=== PATIENT | male | born 1955 | race Caucasian/White ===

== ENCOUNTER 2023-07-07 08:28 | Outpatient (OUT) | payer MEDICARE, OTHER, SELFPAY ==
[2023-07-07 10:05] LABS: Estimated Average Glucose 100 mg/dL; Glycohemoglobin A1C 5.1 % (4.5-6.2)
[2023-07-07 10:12] LABS: Free T4 0.92 ng/dL (0.76-1.46)
[2023-07-07 10:15] LABS: Alanine Aminotransferase 29 U/L (16-63); Albumin Level 3.6 g/dL (3.4-5.0); Alkaline Phosphatase 59 U/L (46-116); Anion Gap 12.9; Aspartate Amino Transferase 24 U/L (15-37); BUN Creatinine Ratio 13.8; Bilirubin Total 0.7 mg/dL (0.2-1.0); Calcium 9.3 mg/dL (8.5-10.1); Carbon Dioxide 24.3 mmol/L (21.0-32.0); Chloride 105 mmol/L (98-107); Chol HDL Ratio 3.6; Cholesterol 167 mg/dL (<=200); Estimated GFR (African America >60 (>=60); Estimated GFR (Non-African Ame >60 (>=60); Globulin 3.5 g/dL; Glucose 100 mg/dL (74-106); HDL Cholesterol 46 mg/dL (40-60); Potassium 4.2 mmol/L (3.5-5.1); Sodium 138 mmol/L (136-145); Thyroid Stimulating Hormone 2.147 uIU/mL (0.358-3.740); Total Protein 7.1 g/dL (6.4-8.2); Triglycerides 172 mg/dL (<=150); Uric Acid 5.9 mg/dL (3.5-7.2); VLDL CHOLESTEROL 34.4 mg/dL
[2023-07-07 10:24] LABS: Prostate Specific Antigen Scrn 3.46 ng/mL (<=4.00)
[2023-07-07 11:32] LABS: Basophils Percent Auto 0.5 % (0.2-2.0); Eosinophils Absolute Auto 0.3 10^3/uL (0.0-0.7); Eosinophils Percent Auto 4.7 % (0.9-7.0); Hematocrit 46.5 % (42.0-54.0); Hemoglobin 15.4 g/dL (14.0-18.0); Immature Granulocytes Abs Auto 0.02 10^3/uL (0.00-0.03); Immature Granulocytes Pct Auto 0.3 % (0.0-0.5); Lymphocytes Absolute Auto 2.3 10^3/uL (1.2-3.8); Lymphocytes Percent Auto 39.5 % (20.5-60.0); Mean Corpuscular HGB Conc 33.1 g/dL (29.9-35.2); Mean Corpuscular Hemoglobin 31.2 pg (25.9-34.0); Mean Corpuscular Volume 94.3 fL (80.0-94.0); Mean Platelet Volume 10.1 fL (9.5-13.5); Monocytes Absolute Auto 0.5 10^3/uL (0.3-0.8); Neutrophils Absolute Auto 2.7 10^3/uL (1.4-6.5); Platelet Count 188 10^3/uL (150-450); Red Blood Count 4.93 10^6/uL (4.70-6.10); Red Cell Distribution Width 12.4 % (11.0-15.0); White Blood Count 5.9 10^3/uL (4.0-11.0)
== END 2023-07-07 08:29 | disposition home or self-care (01) ==
LOC: LAB 08:31
PROVIDERS: PCP Family Medicine; Visit Provider Family Medicine
DX: E78.5 Hyperlipidemia, unspecified (principal); R73.09 Other abnormal glucose; G25.0 Essential tremor; E78.1 Pure hyperglyceridemia; E79.0 Hyperuricemia without signs of inflammatory arthritis and tophaceous disease; E78.00 Pure hypercholesterolemia, unspecified; Z12.5 Encounter for screening for malignant neoplasm of prostate
CPT/HCPCS: 36415; 80053; 80061; 83036; 84436; 84439; 84443; 84550; 85025; G0103

== ENCOUNTER 2025-05-26 10:02 | Outpatient (OUT) | payer MEDICARE, OTHER, SELFPAY ==
--- OUTSIDE RECORDS SUMMARY | 2025-05-26 10:06 | XMS_ITS | Clinical Summary ---
Author Organization [facility] Address [address] [place] [address] Care Team Providers Care Sequins Stringer Name Role Phone Nils Stallings MD Primary Care Provider [phone] Allergies Active Allergy Reactions Criticality Noted Date Comments Povidone Iodine Unknown 12/19/2023 Other Reaction(s): Rash Sulfa Antibiotics 01/07/2025 Other Reaction(s): Unknown Medications MULTIPLE VITAMIN IV Active aspirin 81 MG EC tablet 1 (one) time each day at the same time Active lansoprazole (Prevacid) [address] capsule Active metoprolol tartrate (Lopressor) 25 MG tablet every 12 (twelve) hours Active simvastatin (Zocor) 40 MG tablet Take 40 mg by mouth at bedtime Active Active Problems No known active problems Social History Tobacco Use Types Packs/Day Years Used Date Smoking Tobacco: Never Passive Smoke Exposure: Never Smokeless Tobacco: Never Tobacco Cessation:Counseling Given: Not Answered Sex and Gender Information Value Date Recorded Sex Assigned at Male 12/12/2023 4:48 PM EDT Legal Sex Male 7:59 PM EDT Gender Identity Male 12/12/2023 4:48 PM EDT Sexual Orientation Not on file Plan of Treatment Upcoming Encounters Date Type Department Care Team (Late Contact Info) Description 01/06/2026 10:35 AM EDT Office Visit [facility] [address] [place] [id number] Katie Pablo MD [address] [place] [address] Health Maintenance Due Date Last Done Comments CT Colonography 1957 Colonoscopy 1957 Colorectal Cancer Screening 1957 FIT-DNA 1957 FIT 1957 FOBT 1957 Sigmoidoscopy 1957 Pneumococcal Vaccine: 65+ Ye ars (1 of 1 - PCV) 2007 Influenza Vaccine (#1) 2025 , 07/01/2022, 07/09/2021, Additional history exists Insurance [facility]ICARE [facility] [place] [id number] Care Teams Sequins Stringer Relationship Specialty Start Date End Date Nils Stallings MD PCP - General 12/12/23
--- OUTSIDE RECORDS SUMMARY | 2025-05-26 10:08 | XMS_ITS | CCD ---
Author Organization [facility] Care Team Providers Care Shoe Ironer Name Role Phone Shweta Stallings Primary Care Physician NILL, DR GARCIA Admitting Unavailable NILL, DR GARCIA Attending Unavailable HOY, DR ROCK Primary Care Unavailable NILL, DR GARCIA Consulting Unavailable HOY, DR ROCK Admitting Unavailable HOY, DR ROCK Attending Unavailable HOY, DR ROCK Primary Care Unavailable HOY, DR ROCK Consulting Unavailable HOY, DR ROCK Admitting Unavailable HOY, DR ROCK Attending Unavailable HOY, DR ROCK Primary Care Unavailable HOY, DR ROCK Consulting Unavailable NILL, DR GARCIA Admitting Unavailable NILL, DR GARCIA Attending Unavailable HOY, DR ROCK Primary Care Unavailable NILL, DR GARCIA Consulting Unavailable ARTURO, CR Consulting Unavailable GEMBUS, DERRICK Consulting Unavailable PATRICKL, Radha Pearson Attending Unavailable Jonatany PROVIDERShweta Referring Unavailabl e NILL, Radha Pearson Attending Unavailable NILL, Radha Pearson Attending Unavailable Shweta Stallings MD Primary Care Provider [phone] KATIE AVALOS Attending Unavailable Allergies Allergy Classification Reported Allergen(s) Allergy Type Date of Onset Reaction(s) Facility (3 sources) Povidone-Iodine; Translations: [povidone iodine topical] Drug Allergy Rash [facility] (3 sources) Sulfonamides (Antibiotic); Translations: [sulfa drugs] Drug allergy Unknown (qualifier value) [facility] [place] (1 source) Povidone-Iodine Drug Allergy [facility] (1 source) Sulfonamides (Antibiotic) Drug allergy (disorder) [facility] (3 sources) Povidone-Iodine Drug Allergy 4 Unknown [facility] (2 sources) Sulfonamides (Antibiotic) Drug Allergy 5 [facility] Medications Current Medications Medication Drug Class(es) Dates Sig (Normalized) Sig (Original) aspirin 81 mg chewable tablet (5 sources) Platelet Aggregation Inhibitor, Nonsteroidal Anti-inflammatory Drug Start: 07-20-2022 aspirin 81 mg Chew Tab 81 mg = 1 tab(s), Chewed, Daily, Refills(s) 0 Start Date: 07/20/22 Status: Ordered aspirin 81 MG EC tablet 1 (one) time each day at the same time Active lansoprazole 30 mg delayed release oral capsule (5 sources) Proton Pump Inhibitor Start: 07-15-2020 take 1 capsule by mouth once daily Prevacid 30 mg Cap-DR 30 mg = 1 cap(s), Oral, Daily, Refills(s) 0 Start Date: 07/15/20 Status: Ordered metoprolol tartrate 50 mg oral tablet (5 sources) beta-Adrenergic Trinity Start: 07-20-2022 take 1 tablet by mouth twice daily Metoprolol tartrate 50 mg Tab 50 mg = 1 tab(s), Oral, BID, Refills(s) 0 Start Date: 07/20/22 Status: Ordered metoprolol tartr ate (Lopressor) 25 MG tablet every 12 (twelve) hours Active MULTIPLE VITAMIN IV (3 sources) MULTIPLE VITAMIN IV Active MULTIPLE VITAMIN IV Multiple Vitamin Active simvastatin 40 mg oral tablet (5 sources) HMG-CoA Reductase Inhibitor Start: 07-15-2020 take 1 tablet by mouth once daily at bedtime simvastatin 40 mg Tab 40 mg = 1 tab(s), Oral, Once a day (at bedtime), Refills(s) 0 Start Date: 07/15/20 Status: Ordered Problems Problem Classification Problem Date Documented Da te Episodic/Chronic Cardiac dysrhythmias (2 sources) Paroxysmal supraventricular tachycardia 07-20-2022 Chronic Conduction disorders (2 sources) Left bundle branch block 07-20-2022 Chronic Diabetes mellitus without complication (1 source) Other abnormal glucose; Translations: [OTHER ABNORMAL GLUCOSE] Onset: 2 Episodic Disorders of lipid metabolism (4 sources) Pure hypercholesterolemia; Translations: [Hyperlipidemia, unspecified] Onset: 2 07-15-2020 Chronic Diverticulosis and diverticulitis (1 source) Diverticulosis of large intestine without perforation or abscess without bleeding; Translations: [DVRTCLOS LG INT NO PERF/ABSC W/O BL] Onset: 2 Chronic Esophageal disorders (3 sources) Gastroesophageal reflux disease; Translations: [Gastro-esophageal reflux disease without esophagitis] Onset: 2 07-15-2020 Chronic Gastrointestinal hemorrhage (7 sources) Rectal hemorrhage; Translations: [Hemorrhage of anus and rectum] Onset: 2 07-15-2020 Episodic Heart valve disorders (4 sources) Mitral valve disorder; 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, non-rheumatic] 07-20-2022 Chronic Hemorrhoids (2 sources) Hemorrhoids 07-20-2022 Episodic Joint disorders and dislocations; trauma-related (2 sources) Derangement of knee 07-15-2020 Chronic Other and unspecified benign neoplasm (2 sources) Melanocytic nevus of trunk; Translations: [Melanocytic nevi of trunk] 01-07-2025 Episodic Other and unspecified benign neoplasm (2 sources) Skin lesion; Translations: [Hemangioma of skin and subcutaneous tissue] 01-07-2025 Episodic Other and unspecified benign neoplasm (2 sources) Melanocytic nevus of scalp; Translations: [Melanocytic nevi of scalp and neck] 01-07-2025 Episodic Other hereditary and degenerative nervous system conditions (2 sources) Essential tremor 07-15-2020 Chronic Other hereditary and degenerative nervous system conditions (1 source) Essential tremor; Translations: [ESSENTIAL TREMOR] Onset: 2 Chronic Other nutritional; endocrine; and metabolic disorders (2 sources) Body mass index 30+ - obesity 07-26-2022 Chronic Other nutritional; endocrine; and metabolic disorders (1 source) Obesity, unspecified; Translations: [OBESITY UNSPECIFIED] Onset: 2 Chronic Other nutritional; endocrine; and metabolic disorders (1 source) Body mass index (BMI) 33.0-33.9, adult; Translations: [BODY MASS INDEX BMI 33.0-33.9 ADULT] Onset: 2 Chronic Other nutritional; endocrine; and metabolic disorders (2 sources) Hyperuricemia 07-15-2020 Episodic Other nutritional; endocrine; and metabolic disorders (1 source) Hyperuricemia without signs of inflammatory arthritis and tophaceous disease; Translations: [HU W/O SIGNS IA AND TOPHACEOUS DZ] Onset: 2 Episodic Other screening for suspected conditions (not mental disorders or infectious disease) (6 sources) Encounter for screening for malignant neoplasm of rectum; Translations: [Encounter for screening for malignant neoplasm of prostate] Onset: 2 Episodic Other skin disorders (2 sources) Lentiginosis; Translations: [Other melanin hyperpigmentation] 01-07-2025 Episodic Other skin disorders (2 sources) Seborrheic keratosis; Translations: [Other seborrheic keratosis] 01-07-2025 Episodic Peripheral and visceral atherosclerosis (2 sources) Intermittent claudication 07-15-2020 Chronic Unclassified (1 source) CONTACT W/AND (SUSP) EXPOS COVID-19; Translations: [CONTACT W/AND (SUSP) EXPOS COVID-19] Onset: 2 Results Test Name Value Interpretation Reference Range Facility Outside Colonoscopyon 2021 Outside Colonoscopy [id number]: 127 Normal [facility] Reminderson 08-25-2022 Reminders - From: Jaky Dillard LPN To: N - Clinical; Sent: 08/25/2022 11:13:59 EST Show up: 07/25/2032 07:00:00 EST Subject: colonoscopy recall Due Date/Time: 08/24/2032 07:00:00 EST Reminder/Recall Patient is due for screening colonoscopy 08/24/2032. Normal [facility] Lab Reportson 08-22-2022 Lab Reports [id number]: 127 Normal [facility] Covid-19 PCR (CVDTB)on 08-11 SARS-CoV-2 (COVID-19) RNA CIARA+probe Ql (Unsp spec) Not detected Normal NOT DETECTED [facility] Comment on above: Result Comment: When diagnostic testing is negative, the possibility of a false negative should be considered in the context of a patient's recent exposures and the presence of clinical signs and symptoms consistent with SARS-CoV-2. This test is not yet approved or cleared by the [place] FDA. When there are no FDA-approved or cleared tests available, and other criteria are met, FDA can make tests available under an emergency access mechanism called an Emergency Use Authorization (EUA). The EUA for this test is supported by the [place] of Health and Human Service's declaration that circumstances exist to justify the emergency use of in vitro diagnostics for the detection and/or diagnosis of the virus that causes COVID-19. This EUA will remain in effect for the duration of the COVID-19 declaration justifying emergency of IVDs, unless it is terminated or revoked by the FDA (after which the test may no longer be used). Performed By: #### C [facility] #### [facility] [address] [address] [address] Marcial Newby Consent for Procedure/Surger yon 07-27-2022 Consent for Procedure/Surgery [id number]: 127 Normal [facility] Ambulatory Visit Summaryon 1 09-25-2021 Ambulatory Visit Summary PHILLIP GAYTAN Eri :1955 Visit Date:07/26/2022 Ambulatory Visit Instructions Your Care Team Attending Physician - SATHISH BAER, Radha Pearson Primary Care Physician - Shweta Stallings MD This Is Your Medications List aspirin (aspirin 81 mg Chew Tab) lansoprazole (Prevacid 30 mg Cap-DR) metoprolol (Metoprolol tartrate 50 mg Tab) simvastatin (simvastatin 40 mg Tab) Procedures Performed Colonoscopy. Discharge Vitals Heart Rate (Peripheral) 68 Respiratory Rate 16 Blood Pressure 118/88 Height 179 cm Height 70 in Weight 107 kg Weight 235.4 lb BMI 33.39 Medications What How Much When Instructions Unchanged aspirin (aspirin 81 mg Chew Tab) 1 Tablets Chewed Every day Unchanged lansoprazole (Prevacid 30 mg Cap-DR) 1 Capsules By Mouth Every day Unchanged metoprolol (Metoprolol tartrate 50 mg Tab) 1 Tablets By Mouth 2 times a day Unchanged simvastatin (simvastatin 40 mg Tab) 1 Tablets By Mouth Once a day (at bedtime) Allergies Betadine (Rash) sulfa drugs (Unknown) Problems Ongoing - Any problem that you are currently receiving treatment for. Acute internal derangement of knee BMI 33.0-33.9,adult Essential tremor GERD (gastroesophageal reflux disease) Hemorrhoids Hyperuricemia Intermittent claudication Left bundle branch block Mitral valve disorder Paroxysmal supraventricular tachycardia Pure hypercholesterolemia Rectal bleeding Tricuspid valve disorder, non-rheumatic Normal [facility] INSULINon 07-02-2022 Insulin 17.9 uIU/mL Normal 2.6-24.[address] [facility] Comment on above: Performed By: #### I NSULIN #### [facility] [address] [address] [address] Marcial Newby OCC BLD IMMUNO SCREENon 06-12 OCCULT BLOOD Negative Normal NEGATIVE [facility] Comment on above: Performed By: #### O BSCRN #### [facility] [address] [address] [address] Marcial Newby CBC AUTO DIFFon 07-01-2022 BASO # 0.1 103/ul Normal 0.0-0.[address] [facility] Comment on above: Performed By: #### C BC #### [facility] [address] [place] [address] Dr. Marcial Newby Basophils/100 WBC (Bld) 0.9 % Normal 0.2-2.[address] [facility] Comment on above: Performed By: #### C BC #### [facility] [address] [address] [address] Marcial Newby EO # 0.2 103/ul Normal 0.0-0.[address] [facility] Comment on above: Performed By: #### C BC #### [facility] [address] [address] [address] Marcial Newby Eosinophils/100 WBC (Bld) 2.8 % Normal 0.9-7.[address] [facility] Comment on above: Performed By: #### C BC #### [facility] [address] [place] [address] Dr. Marcial Newby Erythrocyte distribution width (RBC) [Ratio] 12.3 % Normal 11.0-15.[address] [facility] Comment on above: Performed By: #### C BC #### [facility] [address] [place] [address] Dr. Marcial Newby Hematocrit (Bld) [Volume fraction] 47.2 % Normal 42.0-54.[address] [facility] Comment on above: Performed By: #### C BC #### [facility] [address] [address] [address] Marcial Newby Hemoglobin (Bld) [Mass/Vol] 15.9 g/dL Normal 14.0-18.[address] [facility] Comment on above: Performed By: #### C BC #### [facility] [address] [address] [address] Marcial Newby IG # 0.01 10e3/ul Normal 0.00-0.[address] [facility] Comment on above: Performed By: #### C BC #### [facility] [address] [place] [address] Dr. Marcial Newby IG % 0.2 % Normal 0.0-0.[address] [facility] Comment on above: Performed By: #### C BC #### [facility] [address] [place] [address] Dr. Marcial Newby LYMPH # 1.8 103/ul Normal 1.2-3.[address] [facility] Comment on above: Performed By: #### C BC #### [facility] [address] [place] [address] Dr. Marcial Newby Lymphocytes/100 WBC (Bld) 34.3 % Normal 20.5-60.[address] [facility] Comment on above: Performed By: #### C BC #### [facility] [address] [place] [address] Dr. Marcial Newby MANUAL DIFF REQ NO Normal [facility] Comment on above: Performed By: #### C BC #### [facility] [address] [place] [address] Dr. Marcial Newby MCH (RBC) [Entitic mass] 31.0 pg Normal 25.9-34.[address] [facility] Comment on above: Performed By: #### C BC #### [facility] [address] [place] [address] Dr. Marcial Newby MCHC (RBC) [Mass/Vol] 33.7 g/dL Normal 29.9-35.[address] [facility] Comment on above: Performed By: #### C BC #### [facility] [address] [address] [address] Marcial Newby MCV (RBC) [Entitic vol] 92.0 fL Normal 80.0-94.[address] [facility] Comment on above: Performed By: #### C BC #### [facility] [address] [address] [address] Marcial Newby MONO # 0.5 103/ul Normal 0.3-0.8 [facility] Comment on above: Performed By: #### C BC #### [facility] [address] [address] [address] Marcial Newby Monocytes/100 WBC (Bld) 9.2 % Normal 1.7-12.[address] [facility] Comment on above: Performed By: #### C BC #### [facility] [address] [place] [address] Dr. Marcial Newby NEUT # 2.8 103/ul Normal 1.4-6.[address] [facility] Comment on above: Performed By: #### C BC #### [facility] [address] [place] [address] Dr. Marcial Newby Neutrophils/100 WBC (Bld) 52.6 % Normal 43.0-75.[address] [facility] Comment on above: Performed By: #### C BC #### [facility] [address] [place] [address] Dr. Marcial Newby Platelet mean volume (Bld) [Entitic vol] 9.6 fL Normal 9.5-13.5 [facility] Comment on above: Performed By: #### C BC #### [facility] [address] [place] [address] Dr. Marcial Newby PLT 208 103/ul Normal 150-450 [facility] Comment on above: Performed By: #### C BC #### [facility] [address] [place] [address] Dr. Marcial Newby RBC 5.13 106/ul Normal 4.70-6.10 [facility] Comment on above: Performed By: #### C BC #### [facility] [address] [address] [address] Marcial Newby WBC 5.3 103/ul Normal 4.0-11.[address] [facility] Comment on above: Performed By: #### C BC #### [facility] [address] [place] [address] Dr. Marcial Newby GLYCOHEMOGLOBIN A1Con 2021 ADA RECOMMENDATION SEE BELOW Normal [facility] Comment on above: Result Comment: ADA RECOMMENDED LIMIT 4.0 - 6.0 ADA THERAPEUTIC TARGET < 7.0 ACTION SUGGESTED > 7.0 Performed By: #### A 1C #### [facility] [address] [place] [address] Dr. Marcial Newby Glucose [Mass/Vol] 108 mg/dL Normal [facility] Comment on above: Performed By: #### A 1C #### [facility] [address] [place] [address] Dr. Marcial Newby HbA1c (Bld) [Mass fraction] 5.4 % Normal 4.5-6.[address] [facility] Comment on above: Performed By: #### A 1C #### [facility] [address] [place] [address] Dr. Marcial Newby LIPID PROFILEon 07-01-2022 CHOL-HDL RATIO NORM SEE BELOW Normal [facility] Comment on above: Result Comment: 3.3 - 4.4 LOW RISK 4.4 - 7.1 AVERAGE RISK 7.1 - 11.0 MODERATE RISK >11.0 HIGH RISK Performed By: #### U SUMMER, CMP, LIPID #### [facility] [address] [place] [address] Dr. Marcial Newby Cholesterol [Mass/Vol] 193 mg/dL Normal <=[address] [facility] Comment on above: Performed By: #### U SUMMER, CMP, LIPID #### [facility] [address] [place] [address] Dr. Marcial Newby Cholesterol in HDL [Mass/Vol] 44 mg/dL Normal 40-[address] [facility] Comment on above: Performed By: #### U SUMMER, CMP, LIPID #### [facility] [address] [place] [address] Dr. Marcial Newby Cholesterol in LDL [Mass/Vol] 112.0 mg/dL Normal [facility] Comment on above: Performed By: #### U SUMMER, CMP, LIPID #### [facility] [address] [address] [address] Marcial Newby Cholesterol.total/Ch olesterol in HDL [Mass ratio] 4.4 {ratio} Normal [facility] Comment on above: Performed By: #### U SUMMER, CMP, LIPID #### [facility] [address] [address] [address] Marcial Newby HDL NORMAL > or = 60 mg/dl - LO W CARDIOVASCULAR RISK <40 mg/dl - HIGH CARDIOVASCULAR RISK Normal [facility] Comment on above: Performed By: #### U SUMMER, CMP, LIPID #### [facility] [address] [address] [address] Marcial Newby LDL CALC NORMAL SEE BELOW Normal [facility] Comment on above: Result Comment: <100 mg/dl OPTIMAL 100 - 129 mg/dl NEAR OR ABOVE OPTIMAL 130 - 159 mg/dl BORDERLINE HIGH 160 - 189 mg/dl HIGH >190 mg/dl VERY HIGH Performed By: #### U SUMMER, CMP, LIPID #### [facility] [address] [address] [address] Marcial Newby Triglyceride [Mass/Vol] 185 mg/dL Critically high <=[address] [facility] Comment on above: Performed By: #### U SUMMER, CMP, LIPID #### [facility] [address] [address] [address] Marcial Newby VLDL CALC 37.0 mg/dL Normal [facility] Comment on above: Performed By: #### U SUMMER, CMP, LIPID #### [facility] [address] [address] [address] Marcial Newby PROF 14(COMP METB)on 022 Albumin [Mass/Vol] 4.0 g/dL Normal 3.4-5.0 [facility] Comment on above: Performed By: #### U SUMMER, CMP, LIPID #### [facility] [address] [address] [address] Marcial Newby Albumin/Globulin [Mass ratio] 1.1 {ratio} Normal [facility] Comment on above: Performed By: #### U SUMMER, CMP, LIPID #### [facility] [address] [address] [address] Marcial Newby ALP [Catalytic activity/Vol] 56 U/L Normal 46-[address] [facility] Comment on above: Performed By: #### U SUMMER, CMP, LIPID #### [facility] [address] [address] [address] Marcial Newby ALT [Catalytic activity/Vol] 31 U/L Normal 16-[address] [facility] Comment on above: Performed By: #### U SUMMER, CMP, LIPID #### [facility] [address] [address] [address] Marcial Newby Anion gap [Moles/Vol] 14.4 mmol/L Normal [facility] Comment on above: Performed By: #### U SUMMER, CMP, LIPID #### [facility] [address] [address] [address] Marcial Newby AST [Catalytic activity/Vol] 24 U/L Normal 15-[address] [facility] Comment on above: Performed By: #### U SUMMER, CMP, LIPID #### [facility] [address] [address] [address] Marcial Newby Bilirubin [Mass/Vol] 0.8 mg/dL Normal 0.2-1.[address] [facility] Comment on above: Performed By: #### U SUMMER, CMP, LIPID #### [facility] [address] [address] [address] Marcial Newby Calcium [Mass/Vol] 9.7 mg/dL Normal 8.5-10.1 [facility] Comment on above: Performed By: #### U SUMMER, CMP, LIPID #### [facility] [address] [address] [address] Marcial Newby Chloride [Moles/Vol] 103 mmol/L Normal 98-[address] [facility] Comment on above: Performed By: #### U SUMMER, CMP, LIPID #### [facility] [address] [address] [address] Marcial Newby CO2 [Moles/Vol] 26.0 mmol/L Normal 21.0-32.0 [facility] Comment on above: Performed By: #### U SUMMER, CMP, LIPID #### [facility] [address] [address] [address] Marcial Nweby Creatinine [Mass/Vol] 1.26 mg/dL Normal 0.70-1.30 [facility] Comment on above: Performed By: #### U SUMMER, CMP, LIPID #### [facility] [address] [address] [address] Marcial Newby EGFR-AF IRANIAN >60 Normal >=60 [facility] Comment on above: Performed By: #### U SUMMER, CMP, LIPID #### [facility] [address] [address] [address] Marcial Newby EGFR-NON AF IRANIAN 57 mL/min/1.73m2 Critically low >=60 [facility] Comment on above: Performed By: #### U SUMMER, CMP, LIPID #### [facility] [address] [address] [address] Marcial Newby Globulin (S) [Mass/Vol] 3.6 g/dL Normal [facility] Comment on above: Performed By: #### U SUMMER, CMP, LIPID #### [facility] [address] [address] [address] Marcial Newby Glucose [Mass/Vol] 98 mg/dL Normal 74-106 [facility] Comment on above: Performed By: #### U SUMMER, CMP, LIPID #### [facility] [address] [address] [address] Marcial Newby Potassium [Moles/Vol] 4.4 mmol/L Normal 3.5-5.1 [facility] Comment on above: Performed By: #### U SUMMER, CMP, LIPID #### [facility] [address] [address] [address] Marcial Newby Protein [Mass/Vol] 7.6 g/dL Normal 6.4-8.2 [facility] Comment on above: Performed By: #### U SUMMER, CMP, LIPID #### [facility] [address] [address] [address] Marcial Newby Sodium [Moles/Vol] 139 mmol/L Normal 136-145 [facility] Comment on above: Performed By: #### U SUMMER, CMP, LIPID #### [facility] [address] [address] [address] Marcial Newby Urea nitrogen [Mass/Vol] 19.0 mg/dL Critically high 7.0-18.[address] [facility] Comment on above: Performed By: #### U SUMMER, CMP, LIPID #### [facility] [address] [address] [address] Marcial Newby Urea nitrogen/Creatinine [Mass ratio] 15.1 mg/mg Normal [facility] Comment on above: Performed By: #### U SUMMER, CMP, LIPID #### [facility] [address] [address] [address] Marcial Newby Physician Referralon 022 Physician Referral [id number]: 127 Normal [facility] URIC ACID SERUMon 07-01-2022 Urate [Mass/Vol] 6.8 mg/dL Normal 3.5-7.2 [facility] Comment on above: Performed By: #### U SUMMER, CMP, LIPID #### [facility] [address] [address] [address] Marcial Newby Vital Signs Date Time Vital Sign Value Performing Clinician Javon fox 07-26-2022 13:22-0500 Blood Pressure Location Radha BESS [facility] 07-26-2022 13:22-0500 Diastolic blood pressure 88 mm[Hg] Radha BESS [facility] 07-26-2022 13:22-0500 Heart rate 68 /min Radha BESS [facility] 07-26-2022 13:22-0500 Respiratory rate 16 /min Radha BESS [facility] 07-26-2022 13:22-0500 Systolic blood pressure 118 mm[Hg] Radha BESS [facility] [place] Encounters Encounter Date Encounter Type Care Provider Facility Start: 01-07-2025 End: 01-07-2025 Jayshree Avalos MD Work Phone: [facility] Start: 01-07-2025 End: 01-07-2025 Bamanthony Avalos MD Work Phone: [facility] Start: 01-07-2025 End: 01-07-2025 ambulatory KATIE AVALOS Not Available Start: 01-07-2025 End: 01-07-2025 Office outpatient visit 15 minutes Katie Avalos MD Work Phone: [facility] Comment on above: Angioma of skin (Dianna jordan Dx); Lentigines; Melanocytic nevus of trunk; Melanocytic nevus of scalp; Seborrheic keratosis Start: 09-08-2022 Encounter for preprocedural laboratory examination DR RADHA BESS [facility] Start: 08-24-2022 End: 08-25-[address] RADHA BESS Facility:[facility] Start: 08-20-2022 End: 08-21-[address] RADHA BESS Facility:[facility] Start: 08-20-2022 End: 08-21-2022 Encounter for preprocedural laboratory examination DR RADHA BESS Facility: Start: 07-26-2022 End: 07-27-2022 [facility]ulatory [facility] Start: 07-26-2022 End: 07-26-2022 Patient encounter procedure Radha BESS [facility] Start: 07-02-2022 End: 07-02-[address] SHWETA STALLINGS Facility:[facility] Start: 07-01-2022 End: 07-02-[address] SHWETA STALLINGS Facility:[facility] Procedures Date Procedure Procedure Detail Performing Clinician Start: 07-01-[address] KURTIS BESS Comment on above: Performed By: #### [place] #### [facility] [address] [address] [address] Mracial Newby Colonoscopy Radha BESS Plan of Treatment Date Care Activity Detail Author Start: 01-06-2026 End: 01-06-2026 Patient encounter procedure 01/06/2026 10:35 AM EDT Office Visit [facility] [address] [place] [address] Katie Avalos MD [address] [place] [address] [facility] Start: 05-12-2025 Influenza vaccination Influenz a Vaccine (Season Ended) [facility] Start: 2007 Pneumococcal Vaccine : 65+ Years (1 of 1 - PCV) Pneumococcal Vaccine: 65+ Years (1 of 1 - PCV) [facility] Start: 1955 Screening for malign ant neoplasm of colon [facility] Immunizations Immunization Date Immunization Notes Care Provider Fa cility 07-01-2024 influenza virus vaccine, unspecified formulation Katie Avalos MD Work Phone: [facility] 07-09-2021 influenza virus vaccine, unspecified formulation Radha BESS [facility] Comment on above: Reason for Medicatio n: Prophylaxis Payers Date Payer Category Payer Medicare MEDICARE [id number] 2022 Private Health Insurance [facility] [id number] 2022 Unknown [id number] 1959 Medicare [id number] 1959 Unknown [id number] 1957 Unknown [id number] .[id number] 1957 Unknown [id number] .[id number] 1957 Unknown [id number] .[id number] 1957 Unknown [id number] .[id number] 1957 Unknown [id number] .[id number] 1957 Unknown [id number] .[id number] 1957 Unknown [id number] .[id number] 1957 Unknown [id number] Social History Date Type Detail Facility Start: 07-26-2022 End: 12-19-2023 Tobacco smoking status Never smoked tobacco (finding) [facility] [place] Tobacco smoking status Never [facility] [place] Start: 12-19-2023 End: 01-07-2025 Sex Assigned At Male [facility] Start: 12-19-2023 Tobacco use and exposure Smokeless tobacco non-user [facility] Start: 12-19-2023 End: 01-07-2025 History of Social function [facility] Start: 1955 Sex assigned at Male [facility] Start: 12-12-2023 Gender identity Identifies as male gender (finding) [facility] NEGATED: Highlighted rowStart: NINF History of tobacco use Passive smoker [facility] Functional Status Date Assessment Result Facility 07-26-2022 Functional Status N/A [facility] History of Present illness Narrative 01-07-2025 Katie Avalos MD - 01/07/2025 10:35 AM EDT Note Date & Type Note Facility 01-07-2025 History of Presen t illness Narrative Skin Check Location: Patient requests a skin examination from the waist up, A full body skin exam was offered, patient declined Dermatologic history: history of atypical mole(s) Last visit: 1 year ago Established patient All pertinent medical history, medications, and allergies were reviewed. General Exam: alert, oriented to person, place, and time, normal affect, well appearing Unaccompanied A complete skin exam was offered, pt declined. Areas not examined despite medical recommendation: From the waist down Scalp, Examined , exam limited by hair Head, Face Examined Neck Examined Chest Examined Back Examined Abdomen Examined Right arm Examined Left arm Examined Hands Examined Digits,nails: Examined Lymphatics: Not examined Skin Exam 1. ANGIOMA OF SKIN (2) Abdomen (Lower Torso, Anterior), Chest (Upper Torso, Anterior) Scattered rios-red papule(s). The patient was informed that angiomas are benign growths on the the skin. No treatment is necessary. 2. LENTIGINES Head - Anterior (Face) Scattered granados macules in sun-exposed areas. The patient was informed that lentigines are benign pigmented lesions that occur on sun-exposed and sun-damaged skin. No treatment is necessary. Recommended regular use of broad spectrum sunscreen SPF 30 or higher 3. MELANOCYTIC NEVUS OF TRUNK Chest (Upper Torso, Anterior) Scattered benign appearing, regular brown to light brown melanocytic papules and macules with similar morphology Counseled regarding these benign growths. Rarely, a nevus can develop into malignant melanoma, so any changing nevi should be promptly re-evaluated. 4. MELANOCYTIC NEVUS OF SCALP Scalp Scattered benign appearing, regular brown to light brown melanocytic papules and macules with similar morphology Counseled regarding these benign growths. Rarely, a nevus can develop into malignant melanoma, so any changing nevi should be promptly re-evaluated. 5. SEBORRHEIC KERATOSIS (2) Generalized, Head - Anterior (Face) Stuck on verrucous, granados-brown papules and plaques. Patient was counseled regarding these benign growths. Removal is normally not necessary, but they may be removed if they are symptomatic or for cosmetic reasons. Next Visit: 1 year documented in this encounter [facility] Clinical Note 08-24-2022 Note Date & Type Note Facility 08-24-2022 Note OPERATIVE NOTE OPERATION DATE: 08/24/2022 PREOPERATIVE DIAGNOSIS: Intermittent rectal bleeding. POSTOPERATIVE DIAGNOSIS: Sigmoid diverticulosis. PROCEDURE: Colonoscopy to cecum. SURGEON: Radha Bess M.D. ANESTHESIA: Monitored anesthesia care. ESTIMATED BLOOD LOSS: Zero. INDICATIONS AND CONSENT: Patient is a 67-year-old male, presents for colorectal screening, has intermittent bright red blood per rectum with wiping. Indications, risks, benefits, alternatives of proceeding with colonoscopy were explained extensively to the patient, including the risks of bleeding, colon perforation or anesthetic complications. All of his questions were answered. Informed consent was obtained. PROCEDURE: Patient brought to the operating room, placed in the left lateral decubitus position. Monitored anesthesia care was provided. Rectal exam was performed which showed no masses or blood. The scope was inserted into the anal canal. Under direct visualization was advanced. With the aid of abdominal compression, it was able to be advanced to the cecum where cecal markings were clearly identified. Upon withdrawal of the scope, mucosal surfaces were carefully examined. There were no mass lesions or polyps. No inflammatory changes or ulcerations. There were moderate, wide mouth sigmoid diverticula without inflammatory changes or scarring. The scope was retroflexed in the anal canal. There were prominent rectal veins. No significant hemorrhoidal disease. Scope was then withdrawn. Patient tolerated procedure well, was sent to recovery room in good condition. CC: Shweta Stallings M.D. [facility] Note 07-31-2022 Note Date & Type Note Facility 07-31-2022 Note Chief Complaint consultation for rectal bleeding HPI Staff 67 year old male presents on consultation from Dr. Stallings for rectal bleeding. Last evaluation for stated complaint 07/2020; planned colonoscopy cancelled per patient. Reports rectal bleeding with blood in toilet water and with wiping after straining for bowel movements. Reports 2-3 episodes per year. Denies rectal pain. No abdominal pain, nausea or vomiting. No unexplained weight loss. Last colonoscopy completed greater than 20 years ago. No known family history of colon cancer. History of Present Illness 67 yo male with h/o hypercholesterolemia, GERD, referred for rectal bleeding; seen 2 years ago and set up for colonoscopy, but cancelled due to COVID concerns; last colonoscopy > 20 years ago; no previous abdominal operations; patient reports intermittent rectal bleeding in toilet and with wiping; no hematochezia or melena, no abdominal complaints; no previous abdominal operations; on baby asa daily, no NSAIDs, no SBE prophylaxis; no fmhx of GI malignancy or IBD; no tobacco use. Review of Systems PHQ Score Initial Depression Screen Score: 0 ROS - Provider Constitutional: no fever, no sweats, no weight loss. Eyes: no glasses, no blurred vision, no visual loss. ENMT: no dentures, no hoarseness, no swallowing difficulties, no hearing loss, no ear infection(s), no nose bleeds. Cardiovascular: normal blood pressure, no chest pain, regular heartbeat, no heart murmur. Respiratory: no shortness of breath, no cough, no asthma, no wheezing. Gastrointestinal: no nausea, no vomiting, no diarrhea, no constipation, no blood in stool, no change in bowel habits, no abdominal pain, no hepatitis. Genitourinary: no kidney stones, no urine infection, no dysuria. Musculoskeletal: no pain, no weakness. Skin: no changing moles, no rash, no skin lumps. Neurologic: no seizures, no epilepsy, no headache. Psychiatric: no emotional or psychiatric problem. Heme/Lymph: no bleeding problems, no anemia, no blood clots, no transfusions. Allergy/Immunologic: no swollen lymph nodes/glands, no IV drug abuse. Other: Additional ROS info: Except as noted in the above Review of Systems and in the History of Present Illness, all other systems have been reviewed and are negative or noncontributory. Physical Exam Vitals & Measurements HR: 68(Peripheral) RR: 16 BP: 118/88 HT: 70 in HT: 179 cm WT: 107 kg WT: 235.4 lb BMI: 33.39 HEENT: normal conjunctiva, sclera clear, no scleral icterus, EOM intact, PERRLA, oral mucosa moist without lesions. Neck: trachea midline, no mass, symmetric, no thyromegaly or nodules, no adenopathy Respiratory: lungs CTA, respirations non labored. Cardiovascular: regular rate and rhythm, no murmur, no pedal edema or varicosities. Gastrointestinal: soft, non distended, no tenderness, no masses, no palpable hernias, diastasis recti no, no hepatosplenomegaly; normal bs Lymphatic: no cervical adenopathy, Musculoskeletal: normal gait, digits and nails without infection, nodes, cyanosis, clubbing. Skin: no rashes, no lesions, no ulcers, no subcutaneous nodules, induration. Psychiatric/Neuro: oriented to time, place, person, judgement normal, affect appropriate for age, insight intact, no focal deficits. Tests: , review of old records completed, Discussed surgical options, risks, and possible complications with patient. Assessment/Plan 1. Screening for malignant neoplasm of colon (Z12.11: Encounter for screening for malignant neoplasm of colon) plan colonoscopy under anesthesia, informed consent obtained. Follow-up No qualifying data available Problem List/Past Medical History Ongoing Acute internal derangement of knee BMI 33.0-33.9,adult Essential tremor GERD (gastroesophageal reflux disease) Hemorrhoids Hyperuricemia Intermittent claudication Left bundle branch block Mitral valve disorder Paroxysmal supraventricular tachycardia Pure hypercholesterolemia Rectal bleeding Screening for malignant neoplasm of colon Tricuspid valve disorder, non-rheumatic Historical No qualifying data Procedure/Surgical History Colonoscopy. Medications aspirin 81 mg Chew Tab, 81 mg= 1 tab(s), Chewed, Daily Metoprolol tartrate 50 mg Tab, 50 mg= 1 tab(s), Oral, BID Prevacid 30 mg Cap-DR, 30 mg= 1 cap(s), Oral, Daily simvastatin 40 mg Tab, 40 mg= 1 tab(s), Oral, Once a day (at bedtime) Allergies Betadine (Rash) sulfa drugs (Unknown) Social History Alcohol - Denies Alcohol Use, 09/10/2019 Substance Abuse - Denies Substance Abuse, 09/10/2019 Tobacco - Denies Tobacco Use, 09/10/2019 Never (less than 100 in lifetime) Tobacco Use:. Never Smokeless Tobacco Use:., 07/26/2022 Family History Parkinson disease: Mother. Primary malignant neoplasm of brain: Father. Immunizations Vaccine Date Status Comments influenza virus vaccine, inactivated 07/09/2021 Given Prophylaxis [facility] Comment on above: Result Comment: Elec tronically Signed By: SATHISH BAER, Radha Mancilla\Date and Time Signed: 07/31/22 11:21 EST Evaluation + Plan note Note Date & Type Note Facility Evaluation + Plan note No data available for this section [facility] [place] Evaluation note Note Date & Type Note Facility Evaluation note Diagnosis Angioma of skin- Primary Lentigines Melanocytic nevus of trunk Benign neoplasm of skin of trunk, except scrotum Melanocytic nevus of scalp Benign neoplasm of scalp and skin of neck Seborrheic keratosis documented in this encounter [facility] Discharge instructions Note Date & Type Note Facility Hospital Discharge instructions No data available for this section [facility] [place] Progress note Note Date & Type Note Facility Progress note No data available for this section [facility] [place] Summary Purpose Family History No Family History Records FoundNo Family History Records FoundNo Family History Records Found Advance Directives No Advanced Directives Records FoundNo Advanced Directives Records FoundNo Advanced Directives Records Found Additional Source Comments Patient Care team informatio n (unrecognized section and content) 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 Start Date End Date Shweta Stallings MD [address] [place] [address] PCP - General 12/12/23 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 Start Date End Date Shweta Stallings MD [address] [place] [address] PCP - General 12/12/23 (unrecognized sect ion and content) No Status Records FoundNo Status Records FoundNo Status Records Found INFORMATION SOURCE (unrecogn ized section and content) DATE CREATED AUTHOR 09/08/2022 [facility] DATE CREATED AUTHOR AUTHOR'S ORGANIZ ATION 09/09/2022 [facility] DATE CREATED AUTHOR AUTHOR'S ORGANIZ ATION 01/08/2025 [facility] EPIC Reason for Visit (unrecogniz ed section and content) Reason Comments Skin Check FOR RECORDS PERTAINING TO PATIENTS WHO ARE OR HAVE BEEN ENROLLED IN A CHEMICAL DEPENDENCY/SUBSTANCEABUSE PROGRAM, SOME INFORMATION MAY BE OMITTED. This clinical summary was aggregated from multiple sources. Caution should be exercised in using it in the provision of clinical care. This summary normalizes information from multiple sources, and as a consequence, information in this document may materially change the coding, format and clinical context of patient data. In addition, data may be omitted in some cases. CLINICAL DECISIONS SHOULD BE BASED ON THE PRIMARY CLINICAL RECORDS. [facility] [employer] [facility]. provides no warranty or guarantee of the accuracy or completeness of information in this document.
[2025-05-26 10:29] LABS: Hematocrit 43.3 % (42.0-54.0); Hemoglobin 14.9 g/dL (14.0-18.0); Immature Granulocytes Abs Auto 0.01 10^3/uL (0.00-0.03); Immature Granulocytes Pct Auto 0.2 % (0.0-0.5); Lymphocytes Absolute Auto 1.5 10^3/uL (1.2-3.8); Mean Corpuscular HGB Conc 34.4 g/dL (29.9-35.2); Mean Corpuscular Hemoglobin 31.9 pg (25.9-34.0); Mean Corpuscular Volume 92.7 fL (80.0-94.0); Platelet Count 200 10^3/uL (150-450); Red Blood Count 4.67 10^6/uL (4.70-6.10); White Blood Count 5.1 10^3/uL (4.0-11.0)
[2025-05-26 11:28] LABS: Alanine Aminotransferase 25 U/L (16-63); Albumin Globulin Ratio 1.1; Albumin Level 3.7 g/dL (3.4-5.0); Alkaline Phosphatase 61 U/L (46-116); Anion Gap 11.7; Aspartate Amino Transferase 26 U/L (15-37); Blood Urea Nitrogen 19.0 mg/dL (7.0-18.0); Calcium 9.7 mg/dL (8.5-10.1); Carbon Dioxide 26.7 mmol/L (21.0-32.0); Chloride 106 mmol/L (98-107); Cholesterol 179 mg/dL (<=200); Estimated GFR (African America >60 (>=60 mL/min/1.73m^2); Estimated GFR (Non-African Ame >60 (>=60 mL/min/1.73m^2); Free T3 1.95 pg/mL (2.18-3.98); Globulin 3.5 g/dL; Glucose 100 mg/dL (74-106); HDL Cholesterol 47 mg/dL (40-60); Potassium 4.4 mmol/L (3.5-5.1); Sodium 140 mmol/L (136-145); Thyroid Stimulating Hormone 1.552 uIU/mL (0.358-3.740); Total Protein 7.2 g/dL (6.4-8.2); Triglycerides 102 mg/dL (<=150); VLDL CHOLESTEROL 20.4 mg/dL
== END 2025-05-26 10:03 | disposition home or self-care (01) ==
LOC: LAB 10:03
PROVIDERS: PCP Family Medicine; Visit Provider Family Medicine
DX: E78.00 Pure hypercholesterolemia, unspecified (principal); I10 Essential (primary) hypertension; K21.9 Gastro-esophageal reflux disease without esophagitis; G25.0 Essential tremor; R73.09 Other abnormal glucose; R53.83 Other fatigue; Z12.5 Encounter for screening for malignant neoplasm of prostate
CPT/HCPCS: 36415; 80053; 80061; 83036; 84436; 84443; 84481; 85025; G0103

== ENCOUNTER 2025-07-03 10:07 | Outpatient (OUT) | payer MEDICARE, OTHER, SELFPAY ==
--- OUTSIDE RECORDS SUMMARY | 2025-07-03 10:11 | XMS_ITS | Clinical Summary ---
Author Organization [facility] Address [address] [place] [address] Care Team Providers Care Donkey Doctor Name Role Phone Nils Stallings MD Primary Care Provider [phone] Allergies Active AllergyReactionsCriticalityNoted DateCommentsPovidone IodineUnknown 12/19/2023 Other Reaction(s): Rash Sulfa Jyeiajygrio51/29/2025 Other Reaction(s): Unknown Medications MedicationSigDispense QuantityRefillsLast FilledStart DateEnd DateStatus MULTIPLE VITAMIN IV Active aspirin 81 MG EC tablet 1 (one) time each day at the same timeActive lansoprazole (Prevacid) [address] capsule Active metoprolol tartrate (Lopressor) 25 MG tablet every 12 (twelve) hoursActive simvastatin (Zocor) 40 MG tablet Take 40 mg by mouth at bedtimeActive Active Problems No known active problems Social History Tobacco UseTypesPacks/DayYears UsedDateSmoking Tobacco: NeverPassive Smoke Exposure: NeverSmokeless Tobacco: Never Tobacco Cessation:Counseling Given: Not Answered Sex and Gender InformationValueDate RecordedSex Assigned at EagptWqbo61/02/2024 4:48 PM EDTLegal JhgEzql1811/23/2022 7:59 PM EDTGender RgghklquXerx88/02/2024 4:48 PM EDTSexual OrientationNot on file Plan of Treatment DateTypeDepartmentCare Team (Latest Contact Info)Gtzlekdgvqn06/28/2026 10:35 AM EDTOffice Visit [facility] [address] [place] [id number] Katie Pablo MD [address] [place] [address] Health MaintenanceDue DateLast DoneCommentsCT Umbrdyjbjowx1957Colonoscopy 1955Colorectal Cancer Pkhqkytwe1957FIT-DNA1957FIT1957 FOBT1957Txofgavbcdndq1957Pneumococcal Vaccine: 65+ Years (1 of 1 - PCV)2007Influenza Vaccine (#1), 07/01/2022, 07/09/2021, Additional [place] [id number] Care Teams Team MemberRelationshipSpecialtyStart Date Nils Stallings MD PCP - [facility]12/12/23
--- OUTSIDE RECORDS SUMMARY | 2025-07-03 10:16 | XMS_ITS | CCD ---
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 Name Role Phone Shweta Stallings Primary Care Physician PATRICKL, DR GARCIA Admitting Unavailable NILL, DR GARCIA [...] Care Unavailable NILL, DR GARCIA Consulting Unavailable CR MORRIS Consulting Unavailable GEMBUS, DERRICK Consulting Unavailable Shweta Stallings MD Primary Care Provider [phone] KATIE AVALOS Attending Unavailable Joaquin WATT Attending Unavailable Allergies Allergy ClassificationReported Allergen(s)Allergy TypeDate of OnsetReaction(s) Facility (3 sources)Povidone-Iodine; Translations: [povidone iodine topical]Drug Allergy [facility] (3 sources)Sulfonamides (Antibiotic); Translations: [sulfa drugs]Drug allergy Unknown (qualifier value)[facility] (1 source)Povidone-IodineDrug AllergyThe [facility] (1 source)Sulfonamides (Antibiotic)Drug allergy (disorder)[facility] (3 sources)Povidone-IodineDrug Aejficw35-60-4230ResmsqsDAGG Healthcare (2 sources)Sulfonamides (Antibiotic)Drug Kdbuksg24-59-0976[facility] Medications Current Medications MedicationDrug Class(es)DatesSig (Normalized)Sig (Original)aspirin 81 mg chewable tablet (5 sources)Platelet Aggregation Inhibitor, Nonsteroidal Anti-inflammatory Drug Start: 22-21-8632tjkrfsm 81 mg Chew Tab 81 mg = 1 tab(s), Chewed, Daily, Refills(s) 0 Start Date: 07/20/22 Status: Orderedaspirin 81 MG EC tablet 1 (one) time each day at the same time Activelansoprazole 30 mg delayed release oral capsule (5 sources)Proton Pump InhibitorStart: 43-12-2726rjdd 1 capsule by mouth once dailyPrevacid 30 mg Cap-DR 30 mg = 1 cap(s), Oral, Daily, Refills(s) 0 Start Date: 07/15/20 Status: Orderedmetoprolol tartrate 50 mg oral tablet (5 sources)beta-Adrenergic BlockerStart: 98-86-8175rlcs 1 tablet by mouth twice dailyMetoprolol tartrate 50 mg Tab 50 mg = 1 tab(s), Oral, BID, Refills(s) 0 Start Date: 07/20/22 Status:Orderedmetoprolol tartrate (Lopressor) 25 MG tablet every 12 (twelve) hours ActiveMULTIPLE VITAMIN IV (3 sources)MULTIPLE VITAMIN IV ActiveMULTIPLE VITAMIN IV Multiple Vitamin Active simvastatin 40 mg oral tablet (5 sources)HMG-CoA Reductase InhibitorStart: 44-47-2352nsxu 1 tablet by mouth once daily at bedtimesimvastatin 40 mg Tab 40 mg = 1 tab(s), Oral, Once a day (at bedtime), Refills(s) 0 Start Date: 07/15/20 Status: Ordered Problems Problem ClassificationProblemDateDocumented DateEpisodic/ChronicCardiac dysrhythmias (2 sources)Paroxysmal supraventricular cmlsboeqypj67-45-6489RypgtncMfcfdjsuel disorders (2 sources)Left bundle branch -50-6172EmsrmnyWryzbted mellitus without complication (1 source)Other abnormal glucose; Translations: [OTHER ABNORMAL GLUCOSE]Onset: 60-74-2185HgfapmshJgvejsetk of lipid metabolism (4 sources)Pure hypercholesterolemia; Translations: [Hyperlipidemia, unspecified]Onset: 881139-64-1710PnmzzovDhdezgrlrsjhsf and diverticulitis (1 source)Diverticulosis of large intestine without perforation or abscess without bleeding; Translations: [DVRTCLOS LG INT NO PERF/ABSC W/O BL]Onset: 14-86-2761HdzcagbPwnxzsjiso disorders (3 sources)Gastroesophageal reflux disease; Translations: [Gastro-esophageal reflux disease without esophagitis]Onset: 028759-91-5022Yfmbxnb Gastrointestinal hemorrhage (7 sources)Rectal hemorrhage; Translations: [Hemorrhage of anus and rectum] Onset: 110457-50-6442MftibfxzBkvis valve disorders (4 sources)Mitral valve disorder; 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, non-rheumatic]59-79-7972QvbtfarTraetfzdhzh (2 sources)Ykyduakykjp67-80-9904GonwqdwiYdydz disorders and dislocations; trauma-related (2 sources)Derangement of delb81-71-2591WczpirdDwsig and unspecified benign neoplasm (2 sources)Melanocytic nevus of trunk; Translations: [Melanocytic nevi of trunk] 82-71-0729EpjdkuidJbsdy and unspecified benign neoplasm (2 sources)Skin lesion; Translations: [Hemangioma of skin and subcutaneous tissue]66-90-9141UfowkmokCucbv and unspecified benign neoplasm (2 sources)Melanocytic nevus of scalp; Translations: [Melanocytic nevi of scalp and neck]62-45-0873SzdzqpsnYgefk hereditary and degenerative nervous system conditions (2 sources)Essential xyhyfp55-36-1122VvcfcenDmpaw hereditary and degenerative nervous system conditions (1 source)Essential tremor; Translations: [ESSENTIAL TREMOR]Onset: 07-06-2022 ChronicOther nutritional; endocrine; and metabolic disorders (2 sources)Body mass index 30+ - zgckcog90-55-8599PhvkgiyBajvw nutritional; endocrine; and metabolic disorders (1 source)Obesity, unspecified; Translations: [OBESITY UNSPECIFIED]Onset: 95-65-5352BmcfvcqEnnnf nutritional; endocrine; and metabolic disorders (1 source)Body mass index (BMI) 33.0-33.9, adult; Translations: [BODY MASS INDEX BMI 33.0-33.9 ADULT]Onset: 40-78-0383CngetmcQetda nutritional; endocrine; and metabolic disorders (2 sources)Vkdfbumjgzzyv91-42-8019IoafgxmgTippc nutritional; endocrine; and metabolic disorders (1 source)Hyperuricemia without signs of inflammatory arthritis and tophaceous disease; Translations: [HU W/OSIGNS IA AND TOPHACEOUS DZ]Onset: 07-06-2022 EpisodicOther screening for suspected conditions (not mental disorders or infectious disease) (6 sources)Encounter for screening for malignant neoplasm of rectum; Translations: [Encounter for screening for malignant neoplasm of prostate]Onset: 21-15-3781DgkptlryGgwgs skin disorders (2 sources)Lentiginosis; Translations: [Other melanin hyperpigmentation] 53-79-6010YxxwrcncBlnrb skin disorders (2 sources)Seborrheic keratosis; Translations: [Other seborrheic keratosis] 97-96-3703YvrtsvjxHmbhcxzblm and visceral atherosclerosis (2 sources)Intermittent clljuszlxrge07-50-2221SfcbyktXwyefwzasutn (1 source)CONTACT W/AND (SUSP) EXPOS COVID-19; Translations: [CONTACT W/AND (SUSP) EXPOS COVID-19]Onset: 09-08-2022 Results Test NameValueInterpretationReference RangeFacilityCovid-19 PCR (CVDTBH)on 74-00-2894HBLD-CoV-2 (COVID-19) RNA CIARA+probe Ql (Unsp spec)Not detectedNormal NOT DETECTEDThe [facility] HospitalComment on above:Result Comment: When diagnostic testing is negative, the possibility of a false negative should be c onsidered in the context of a patient's recent [...] for this test is supported by the [place] of Health and Human Service's declaration that circumstances exist to justify the emergency use of in vitro diagnostics for the detection and/or diagnosis of the virus that causes COVID-19. This EUA will remain in effect for the duration of the COVID-19 declaration justifying emergency of IVDs, unless it is terminated or revoked by the FDA (after which the test may no longer be used).Performed By: #### CVDTBH #### [facility] [address] [place] [address] Dr. Marcial NewbyINSULINon 55-82-4595Wpckytb91.9 uIU/mLNormal2.6-24.9The [facility] HospitalComment on above:Performed By: #### INSULIN #### [facility] [address] [place] [address] Dr. Marcial Collins BLD IMMUNO SCREENon 65-55-7628YVMOJE BLOODNegativeNormal NEGATIVEThe Providence HospitalComment on above:Performed By: #### OBSCRN #### [facility] [address] [place] [address] Dr. Marcial NewbyCBC AUTO DIFFon 77-78-4831RREH #0.1 103/ulNormal0.0-0.1The [facility] HospitalComment on above:Performed By: #### CBC #### [facility] [address] [place] [address] Dr. Marcial NewbyBasophils/100 WBC (Bld)0.9 %Normal0.2-2.0[facility] Comment on above:Performed By: #### CBC #### [facility] [address] [place] [address] Dr. Marcial Norris #0.2 103/ulNormal0.0-0.7The [facility] HospitalComment on above: Performed By: #### CBC #### [facility] [address] [place] [address] Dr. Marcial Whitmanosinophils/100 WBC (Bld)2.8 %Normal0.9-7.0[facility] Comment on above:Performed By: #### CBC #### [facility] [address] [place] [address] Dr. Marcial Whitmanrythrocyte distribution width (RBC) [Ratio]12.3 %Xcricv88.0-15.0 The [facility] HospitalComment on above:Performed By: #### CBC #### [facility] [address] [place] [address] Dr. Marcial NewbyHematocrit (Bld) [Volume fraction]47.2 %Wuftom97.0-54.0The [facility] HospitalComment on above:Performed By: #### CBC #### [facility] [address] [place] [address] Dr. Marcial NewbyHemoglobin (Bld) [Mass/Vol]15.9 g/mFEfcrff27.0-18.0The [facility] HospitalComment on above:Performed By: #### CBC #### [facility] [address] [place] [address] Dr. Marcial Johnston #0.01 10e3/ulNormal0.00-0.03The [facility] HospitalComment on above:Performed By: #### CBC #### [facility] [address] [place] [address] Dr. Marcial Johnston %0.2 %Normal0.0-0.5The [facility] HospitalComment on above: Performed By: #### CBC #### [facility] [address] [place] [address] Dr. Marcial Godfrey #1.8 103/ulNormal1.2-3.8The [facility] HospitalComment on above:Performed By: #### CBC #### [facility] [address] [place] [address] Dr. Marcial Galindohocytes/100 WBC (Bld)34.3 %Oimdki85.5-60.0The [facility] HospitalComment on above:Performed By: #### CBC #### [facility] [address] [place] [address] Dr. Marcial MuellerUAL DIFF REQNONormalThe [facility] HospitalComment on above: Performed By: #### CBC #### [facility] [address] [place] [address] Dr. Marcial Guerrero (RBC) [Entitic mass]31.0 vsXalbof59.9-34.0The [facility] HospitalComment on above:Performed By: #### CBC #### [facility] [address] [place] [address] Dr. Marcial Kapadia (RBC) [Mass/Vol]33.7 g/xFWfaceg29.9-35.2The [facility] HospitalComment on above:Performed By: #### CBC #### [facility] [address] [place] [address] Dr. Marcial KapadiaV (RBC) [Entitic vol]92.0 hFBdcqio04.0-94.0The [facility] HospitalComment on above:Performed By: #### CBC #### [facility] [address] [place] [address] Dr. Marcial Vernon #0.5 103/ulNormal0.3-0.8The [facility] HospitalComment on above:Performed By: #### CBC #### [facility] [address] [place] [address] Dr. Marcial Lezamaocytes/100 WBC (Bld)9.2 %Normal1.7-12.0[facility] Comment on above:Performed By: #### CBC #### [facility] [address] [place] [address] Dr. Marcial James #2.8 103/ulNormal1.4-6.5The [facility] HospitalComment on above:Performed By: #### CBC #### [facility] [address] [place] [address] Dr. Marcial Cifuentesutrophils/100 WBC (Bld)52.6 %Uiqfkb71.0-75.0The [facility] HospitalComment on above:Performed By: #### CBC #### [facility] [address] [place] [address] Dr. Marcial Websterlet mean volume (Bld) [Entitic vol]9.6 fLNormal9.5-13.5The [facility] HospitalComment on above:Performed By: #### CBC #### [facility] [address] [place] [address] Dr. Marcial KulkarniT208 103/goZrozrj663-976Ytf [facility] HospitalComment on above: Performed By: #### CBC #### [facility] [address] [place] [address] Dr. Marcial NewbyRBC5.13 106/ulNormal4.70-6.10The [facility]Com[facility] on above:Performed By: #### CBC #### [facility] [address] [place] [address] Dr. Marcial NewbyWBC5.3 103/ulNormal4.0-11.0[facility] on above: Performed By: #### CBC #### [facility] [address] [place] [address] Dr. Marcial NewbyGLYCOHEMOGLOBIN A1Con 20-14-0746TUI RECOMMENDATIONSEE BELOWSt. Rita'S HospitalComment on above:Result Comment: ADA RECOMMENDED LIMIT 4.0 - 6.0 ADA THERAPEUTIC TARGET < 7.0 ACTION SUGGESTED > 7.0Performed By: #### A1C #### [facility] [address] [place] [address] Dr. Marcial NewbyGlucose [Mass/Vol]108 mg/dLNoMercy Health Urbana HospitalComment on above:Performed By: #### A1C #### [facility] [address] [place] [address] Dr. Marcial NewbyHbA1c (Bld) [Mass fraction]5.4 %Normal4.5-6.2[facility] CenterComment on above:Performed By: #### A1C #### [facility] [address] [place] [address] Dr. Marcial NewbyLIPID PROFILEon 09-87-4470TYZL-HDL RATIO NORMSEE [facility] on above:Result Comment: 3.3 - 4.4 LOW RISK 4.4 - 7.1 AVERAGE RISK 7.1 - 11.0 MODERATE RISK >11.0 HIGH RISKPerformed By: #### URIC, CMP, LIPID #### [facility] [address] [place] [address] Dr. Marcial NewbyCholesterol [Mass/Vol]193 mg/dLNormal<=200[facility] Comment on above:Performed By: #### URIC, CMP, LIPID #### [facility] [address] [place] [address] Dr. Marcial Fosteresterol in HDL [Mass/Vol]44 mg/zUHxydil77-28RnyKn[facility] on above:Performed By: #### URIC, CMP, LIPID #### [facility] [address] [address] [address] Marcial NewbyCholesterol in LDL [Mass/Vol]112.0 mg/dLKettering Health Troy on above:Performed By: #### URIC, CMP, LIPID #### [facility] [address] [address] [address] Marcial Luna.total/Cholesterol in HDL [Mass ratio]4.4 {ratio} NormalThe [facility] on above:Performed By: #### URIC, CMP, LIPID #### [facility] [address] [place] [address] Dr. Marcial Augustin NORMAL> or = 60 mg/dl - LOW CARDIOVASCULAR RISK <40 mg/dl - HIGH CARDIOVASCULAR RISKKettering Health Troy on above:Performed By: #### URIC, CMP, LIPID #### [facility] [address] [place] [address] Dr. Marcial Modi CALC NORMALSEE BELOWSuburban Community Hospital & Brentwood HospitalComasc[facility] on above:Result Comment: <100 mg/dl OPTIMAL 100 - 129 mg/dl NEAR OR ABOVE OPTIMAL 130 - 159 mg/dl BORDERLINE HIGH 160 - 189 mg/dl HIGH >190 mg/dl VERY HIGH Performed By: #### URIC, CMP, LIPID #### [facility] [address] [place] [address] Dr. Marcial NewbyTriglyceride [Mass/Vol]185 mg/dLCritically high<=150[facility] on above:Performed By: #### URIC, CMP, LIPID #### [facility] [address] [place] [address] Dr. Marcial GarnerLDL CALC37.0 mg/dLKettering Health Troy on above: Performed By: #### URIC, CMP, LIPID #### [facility] [address] [place] [address] Dr. Marcial Laguna 14(COMP METB)on 77-62-7144Obpuyja [Mass/Vol]4.0 g/dLNormal 3.4-5.0The [facility] HospitalComment on above:Performed By: #### URIC, CMP, LIPID #### [facility] [address] [address] [address] Marcial NewbyAlbumin/Globulin [Mass ratio]1.1 {ratio}NormalThe [facility] HospitalComment on above:Performed By: #### URIC, CMP, LIPID #### [facility] [address] [address] [address] Marcial ZafarP [Catalytic activity/Vol]56 U/JYdmhzb94-410Ufw [facility] HospitalComment on above:Performed By: #### URIC, CMP, LIPID #### [facility] [address] [place] [address] Dr. Marcial Orantes [Catalytic activity/Vol]31 U/DEyvuom00-70Cmx [facility] HospitalComment on above:Performed By: #### URIC, CMP, LIPID #### [facility] [address] [address] [address] Marcial Andrade gap [Moles/Vol]14.4 mmol/LNormalThe [facility] Comment on above:Performed By: #### URIC, CMP, LIPID #### [facility] [address] [place] [address] Dr. Marcial NewbyAST [Catalytic activity/Vol]24 U/DNiazbj73-97Jwc [facility] HospitalComment on above:Performed By: #### URIC, CMP, LIPID #### [facility] [address] [address] [address] Marcial NewbyBilirubin [Mass/Vol]0.8 mg/dLNormal0.2-1.0[facility] Comment on above:Performed By: #### URIC, CMP, LIPID #### [facility] [address] [place] [address] Dr. Marcial NewbyCalcium [Mass/Vol]9.7 mg/dLNormal8.5-10.1[facility] Comment on above:Performed By: #### URIC, CMP, LIPID #### [facility] [address] [address] [address] Marcial NewbyChloride [Moles/Vol]103 mmol/CDekiaw98-543Bve [facility] Comment on above:Performed By: #### URIC, CMP, LIPID #### [facility] [address] [address] [address] Marcial NewbyCO2 [Moles/Vol]26.0 mmol/RWxmrsc49.0-32.0[facility] Comment on above:Performed By: #### URIC, CMP, LIPID #### [facility] [address] [address] [address] Marcial NewbyCreatinine [Mass/Vol]1.26 mg/dLNormal0.70-1.30The [facility] HospitalComment on above:Performed By: #### URIC, CMP, LIPID #### [facility] [address] [address] [address] Marcial WhitmanGFR-AF NAURUAN>60Normal>=60The [facility] HospitalComment on above:Performed By: #### URIC, CMP, LIPID #### [facility] [address] [address] [address] Marcial Rossi-NON AF XWINXRMB87 mL/min/1.47i4Flvhmbpvsv low>=60The [facility] HospitalComment on above:Performed By: #### URIC, CMP, LIPID #### [facility] [address] [address] [address] Marcial NewbyGlobulin (S) [Mass/Vol]3.6 g/dLNormalThe [facility] HospitalComment on above:Performed By: #### URIC, CMP, LIPID #### [facility] [address] [address] [address] Marcial NewbyGlucose [Mass/Vol]98 mg/fMUlowyl57-474Bbv [facility] Comment on above:Performed By: #### URIC, CMP, LIPID #### [facility] [address] [address] [address] Marcial NewbyPotassium [Moles/Vol]4.4 mmol/LNormal3.5-5.1[facility] Comment on above:Performed By: #### URIC, CMP, LIPID #### [facility] [address] [address] [address] Marcial NewbyProtein [Mass/Vol]7.6 g/dLNormal6.4-8.2[facility] Comment on above:Performed By: #### URIC, CMP, LIPID #### [facility] [address] [place] [address] Dr. Marcial NewbySodium [Moles/Vol]139 mmol/DNqgimd994-918DecOhiohealth Southeastern Medical Center Comment on above:Performed By: #### URIC, CMP, LIPID #### [facility] [address] [place] [address] Dr. Marcial NewbyUrea nitrogen [Mass/Vol]19.0 mg/dLCritically high7.0-18.0[facility] CenterComment on above:Performed By: #### URIC, CMP, LIPID #### [facility] [address] [place] [address] Dr. Marcial Heredia nitrogen/Creatinine [Mass ratio]15.1 mg/mgNormalThMercy Health Urbana HospitalComment on above:Performed By: #### URIC, CMP, LIPID #### [facility] [address] [place] [address] Dr. Marcial NewbyURIC ACID SERUMon 78-81-7329Enllb [Mass/Vol]6.8 mg/dLNormal 3.5-7.2[facility] CenterComment on above:Performed By: #### URIC, CMP, LIPID #### [facility] [address] [place] [address] Dr. Marcial Newby Vital Signs Date TimeVital SignValuePerforming OgzbgimhoIdeflbwd68-82-5786 13:22-0500Blood Pressure Kenan BESS [facility] Bvlloxrj51-64-7673 13:22-0500Diastolic blood kgwilwbx87 mm[Hg]Radha [facility]ESS [facility] Jiavksij49-29-4940 13:22-0500Heart rate 68 /minMichael NILL [facility] Iygaacdv37-24-7382 13:22-0500 Respiratory rate16 /minMichael NILL [facility] Lpnwswzv43-71-3523 13:22-0500Systolic blood lsasmffz151 mm[Hg]Radha SATH[facility] Encounters Encounter DateEncounter TypeCare ProviderFacilityStart: 98-18-5674spkorhywaj Joaquin HAMILTONFacility:FTMCStart: 01-07-2025 End: 35-48-7688Qlouzqparviz Avalos MD Work Phone: [facility] DERMStart: 01-07-2025 End: 98-45-8246Ckicwr flowsheetKatie Avalos MD Work Phone: [facility] DERMStart: 01-07-2025 End: 69-98-1058twkibsymvpJXDEQ A PETITTINot AvailableStart: 01-07-2025 End: 74-68-7985Alfadw outpatient visit 15 minutesEmsharifa Avalos MD Work Phone: [facility] DERMComment on above:Angioma of skin (Primary Dx); Lentigines; Melanocytic nevus of trunk; Melanocytic nevus of scalp; Seborrheic keratosisStart: 00-06-5511Axbrpajtn for preprocedural laboratory examinationDR RADHA Martines [facility] HospitalStart: 08-24-2022 End: 97-18-7486iwvxcnzkouOS RADHA BESSFacility:Q8Mtntk: 08-20-2022 End: 72-49-5770osgjodpjrsVE RADHA BESSFacility:L9Zxcok: 08-20-2022 End: 32-61-9092Qzdzhbvgj for preprocedural laboratory examinationDR RADHA BESS Facility:M0Zvbke: 07-26-2022 End: 42-14-3383Kpsrglz encounter procedureMichael R NILL [facility] [place] Start: 07-02-2022 End: 84-01-0931wwsfvntjwoPY SHWETA HOYFacility:Y6Vybmz: 07-01-2022 End: 33-25-1814tiaeklitnkKJ SHWETA HOYFacility:H1 Procedures DateProcedureProcedure DetailPerforming ClinicianStart: 43-29-1381JLN screening DR RADHA PARKERomment on above:Performed By: #### PSASC #### [facility] [address] [address] [address] Marcial KirbynoscopyMichael NILL Plan of Treatment DateCare ActivityDetailAuthorStart: 01-06-2026 End: 07-41-8015Ehapdxq encounter eqrpkibmy65/28/2026 10:35 AM EDT Office Visit [facility] [address] [place] [address] Katie Avalos MD [address] [place] [address] [facility] DERMStart: 82-96-7601Suqollonw vaccination Influenza Vaccine (Season Ended)NOM HealthcareStart: 56-95-5421Zcscgromhrbu Vaccine: 65+ Years (1 of 1 - PCV)Pneumococcal Vaccine: 65+ Years (1 of 1 - PCV) [facility] HealthcareStart: 17-04-3004Tlulsarnb for malignant neoplasm of colonNOVT Healthcare Immunizations Immunization DateImmunizationNotesCare HufrovecYeqsueja75-97-7462izgqaopqg virus vaccine, unspecified formulationKatie Avalos MD Work Phone: [facility] Iurcamqrrn76-83-4297zrprprmze virus vaccine, unspecified formulationMichael NILL [facility] HospitalComment on above:Reason for Medication: Prophylaxis Payers DatePayer CategoryPayerPolicy ID2022MedicareMEDICARE [id number] Health InsuranceMUTPROVIDENCE [facility] [id number] [id number] [id number] [id number] 1957Unknown [id number] 2..[id number] 2..[id number] 2..[id number] 2..1.244107.3.57[id number] 2..1.177517.3.57[id number] 2..1.573075.3.579.2.727 Social History DateTypeDetailFacilityStart: 07-26-2022 End: 08-51-9010Ipewemz smoking statusNever smoked tobacco (finding)[facility] BellevueTobacco smoking statusNeverGeneral Surgery BellevueStart: 12-19-2023 End: 17-06-2242Ifg [facility]igned [facility] CenterStart: 64-79-2237Mtakymj use and exposureSmokeless tobacco non-userNOMS Healthcare Start: 12-19-2023 End: 29-81-7814Cjynryn of Social functionNOVT HealthcareStart: 54-11-4412Aba assigned at [facility] HealthcareStart: 38-26-3973Wrbkdh identityIdentifies as male gender (finding)[facility] HealthcareNEGATED: Highlighted rowStart: NINF History of tobacco usePassive smokerNOVT Healthcare Functional Status LjogXkbqoeedqxDckfulCesxbjdr06-28-5634Zmdhempudv StatusN/AGeneral Surgery [place] History of Present illness Narrative 01-07-2025 Note Date & RrbvKebjNjxbjpth26-04-1796 History of Present illness Narrative* Katie Avalos MD - 01/07/2025 10:35 AM EDT Skin Check Location: Patient requests a skin examination from the waist up, A full body skin exam was offered,patient declined Dermatologic history: history of atypical mole(s) [...] benign pigmented lesions that occur on sun-exposed andsun-damaged skin. No treatment is necessary. Recommended regular [...] Next Visit: 1 [facility]22 Note Date & WmpyQkknObnmotqc99-69-5680 NoteOPERATIVE NOTE OPERATION DATE: 08/24/2022 PREOPERATIVE DIAGNOSIS: Intermittent [...] room in good condition. CC: Shweta Stallings M.D.[facility] Evaluation + Plan note Note Date & TypeNoteFacilityEvaluation + Plan note No data available for this section General Surgery [place] Evaluation note Note Date & TypeNoteFacilityEvaluation note* Diagnosis Angioma of skin- Primary Lentigines Melanocytic nevus of trunk Benign neoplasm of skin of trunk, except scrotum Melanocytic nevus of scalp Benign neoplasm of scalp and skin of neck Seborrheic keratosis documented in this encounter [facility] Discharge instructions Note Date & TypeNoteFacilityHospital Discharge instructions No data available for this section General Surgery [place] Progress note Note Date & TypeNoteFacilityProgress note No data available for this section General Surgery [place] Summary Purpose Family History No Family History Records FoundNo Family History Records FoundNo Family History Records Found Advance Directives No Advanced Directives Records FoundNo Advanced Directives Records FoundNo Advanced Directives Records Found Additional Source Comments Patient Care team informatio n (unrecognized section and content) Team MemberRelationshipSpecialtyStart DateEnd Shweta tSallings MD [address] [place] [phone] PCP - General12/12/23Team MemberRelationshipSpecialtyStart DateEnd Shweta Stallings MD [address] [place] [phone] PCP - General12/12/23 (unrecognized sect ion and content) No Status Records FoundNo Status Records FoundNo Status Records Found INFORMATION SOURCE (unrecogn ized section and content) DATE CREATED AUTHOR 09/08/2022 [facility] DATE CREATED AUTHOR AUTHOR'S ORGANKALI ATION 01/08/2025 [facility] DATE CREATED AUTHOR AUTHOR'S ORGANIZ ATION 06/25/2025 [facility] Reason for Visit (unrecogniz ed section and content) ReasonCommentsSkin Check FOR RECORDS PERTAINING TO PATIENTS WHO [...] BE BASED ON THE PRIMARY CLINICAL RECORDS. [facility] provides no warranty or guarantee of the accuracy or completeness of information in this document.
[2025-07-03 11:10] LABS: Free T3 2.28 pg/mL (2.18-3.98); Thyroid Stimulating Hormone 1.305 uIU/mL (0.358-3.740)
== END 2025-07-03 10:08 | disposition home or self-care (01) ==
LOC: LAB 10:08
PROVIDERS: PCP Family Medicine; Visit Provider Family Medicine
DX: E03.9 Hypothyroidism, unspecified (principal)
CPT/HCPCS: 36415; 84436; 84443; 84481